=== PATIENT | male | born 1980 | race Hispanic/Latino ===

== ENCOUNTER 2019-11-17 14:33 | Emergency (ER) | payer SELFPAY ==
--- NOTE | 2019-11-17 16:10 | RAD ---
XR Foot Rt 3 View STANDARD History: Pain Comparison: None. Findings: Small plantar calcaneal spur. No acute displaced fracture or malalignment. Lisfranc interva l is maintained. Soft tissues are unremarkable. Impression: No acute osseous abnormality.
[2019-11-17] MEDS ORDERED: Ibuprofen 800 MG TAB ONE (16:17)
== END 2019-11-17 16:57 | disposition home or self-care (01) ==
LOC: ERS 14:33
DX: M72.2 Plantar fascial fibromatosis (principal)

== ENCOUNTER 2019-11-27 11:28 | Emergency (ER) | payer SELFPAY ==
[2019-11-27] MEDS ORDERED: Ketorolac Tromethamine 30 MG/ML VIAL ONE (11:50)
[2019-11-27] MEDS ORDERED: Morphine 2 MG/ML VIAL ONE (11:51)
[2019-11-27] MEDS ORDERED: Diazepam 10 MG/2 ML SYRINGE ONE (11:52)
--- NOTE | 2019-11-27 12:20 | CT ---
CT Stone Protocol: 11/27/2019 12:07 PM HISTORY: Left flank pain for 2 days COMPARISON: None. TECHNIQUE: Multiple contiguous axial images were obtained and a CT of the abdomen and pelvis without IV contrast . Coronal and sagittal reformats were performed. FINDINGS: This examination is limited for the evaluation of solid organs and vascular structures due to the lac k of intravenous contrast. Lower Chest: within normal limits. Abdomen: Liver: within normal limits. Bile Ducts: Normal caliber. Gallbladder: No calcified gallstones. Normal caliber wall. Pancreas: within normal limits. Spleen: within normal limits. Adrenals: within normal limits. Kidneys: within normal limits. Pelvis: Reproductive Organs: No pelvic masses. Ureters: within normal limits. Bladder: within normal limits. Bowel: Normal caliber. Normal appendix. Mesenteric Lymph Nodes: No enlarged mesenteric lymph nodes. Peritoneum: No ascites or free air, no fluid collection. Vessels: Normal caliber aorta Retroperitoneum: within normal limits. Abdominal Wall: within normal limits. Bones: Unremarkable. IMPRESSION: No evidence of acute intraabdominal or pelvic abnormality.
[2019-11-27 13:01] LABS: ALT (SGPT) 144 U/L (8-55); AST (SGOT) 166 U/L (5-34); Albumin 4.3 g/dL (3.5-5.0); Alkaline Phosphatase 184 U/L (40-110); Anion Gap 18 mmol/L (10-20); BUN (Urea Nitrogen) 14 mg/dL (8.9-20.6); Bilirubin, Total 0.8 mg/dL (0.2-1.2); Calc. Creatinine Clearance 0 mL/min (70-130); Carbon Dioxide 20 mmol/L (22-29); Chloride 98 mmol/L (98-107); Estimated GFR-MDRD 67; Globulin 3.3 g/dL (2.4-3.5); Glucose 109 mg/dL (70-105); Protein, Total 7.6 g/dL (6.0-8.3); Sodium 132 mmol/L (136-145)
[2019-11-27 13:01] LABS: #Lymphocytes 1.4 thou/uL (1.20-3.40); #Monocytes 0.4 thou/uL (0.11-0.59); #Neutrophils 2.7 thou/uL (1.40-6.50); %Basophils 0.7 % (0.0-1.0); %Eosinophils 0.2 % (0.0-10.0); %Monocytes 7.8 % (0.0-10.0); %Neutrophils 60.3 % (42.0-75.0); Hemoglobin 13.7 g/dL (14.0-18.0); Mean Corpuscular HGB CONC 33.8 g/dL (32.0-36.0); Mean Corpuscular Hemoglobin 29.3 pg (27.0-31.0); Mean Corpuscular Volume 86.6 fL (78.0-98.0); Platelet Count 146 thou/uL (130-400); RBC Distribution Width 11.4 % (11.5-14.5); Red Blood Cell (RBC) Count 4.68 mill/uL (4.70-6.10); White Blood Cell (WBC) Count 4.4 thou/uL (4.8-10.8)
== END 2019-11-27 13:44 | disposition home or self-care (01) ==
LOC: ERS 11:28
DX: S29.012A Strain of muscle and tendon of back wall of thorax, initial encounter (principal); X58.XXXA Exposure to other specified factors, initial encounter
CPT/HCPCS: 36415; 74176; 80053; 84443; 85025; 93005; 96361; 96374; 96375; J1885; J2270; J3360

== ENCOUNTER 2019-11-28 21:38 | Emergency (ER) | payer SELFPAY ==
[2019-11-28 22:10] LABS: #Lymphocytes 1.7 thou/uL (1.20-3.40); #Monocytes 0.3 thou/uL (0.11-0.59); #Neutrophils 3.7 thou/uL (1.40-6.50); %Basophils 0.7 % (0.0-1.0); %Eosinophils 0.6 % (0.0-10.0); %Lymphocytes 29.5 % (21.0-51.0); %Monocytes 5.5 % (0.0-10.0); %Neutrophils 63.7 % (42.0-75.0); Hemoglobin 14.5 g/dL (14.0-18.0); Mean Corpuscular HGB CONC 34.5 g/dL (32.0-36.0); Mean Corpuscular Hemoglobin 29.9 pg (27.0-31.0); Mean Corpuscular Volume 86.6 fL (78.0-98.0); Mean Platelet Volume 7.2 fL (7.4-10.4); Platelet Count 168 thou/uL (130-400); RBC Distribution Width 11.6 % (11.5-14.5); Red Blood Cell (RBC) Count 4.87 mill/uL (4.70-6.10); White Blood Cell (WBC) Count 5.8 thou/uL (4.8-10.8)
[2019-11-28 22:29] LABS: Bacteria/HPF None Seen HPF (None Seen); Bilirubin Negative (Negative); Blood, Urine Negative (Negative); Calcium Oxalate Crystals Rare HPF (None Seen); Clarity Turbid (Clear); Glucose, Urine (Dipstick) Normal (Negative); Ketone, Urine 20 mg/dL (Negative); Leukocyte Negative Leu/uL (Negative); Mucous/LPF 2+ LPF (<2+); Nitrite Negative (Negative); Protein, Urine (Dipstick) 50 mg/dL (Neg-Trace); RBC/HPF 0-3 HPF (0-3); Renal Epithelial 0-3 HPF (None Seen); Specific Gravity, Urine 1.032 (1.002-1.036); Squamous Epithelial 0-3 HPF (0-3); Urobilinogen 3 mg/dL (Less than 2)
[2019-11-28 22:33] LABS: ALT (SGPT) 158 U/L (8-55); AST (SGOT) 165 U/L (5-34); Alkaline Phosphatase 188 U/L (40-110); Anion Gap 18 mmol/L (10-20); BUN (Urea Nitrogen) 21 mg/dL (8.9-20.6); Bilirubin, Total 0.8 mg/dL (0.2-1.2); CK (CPK) 46 U/L (30-200); Calc. Creatinine Clearance 0 mL/min (70-130); Calcium 9.1 mg/dL (7.8-10.44); Carbon Dioxide 19 mmol/L (22-29); Chloride 101 mmol/L (98-107); Estimated GFR-MDRD 76; Globulin 3.8 g/dL (2.4-3.5); Glucose 93 mg/dL (70-105); Lipase 94 U/L (8-78); Potassium 3.8 mmol/L (3.5-5.1); Protein, Total 7.8 g/dL (6.0-8.3); Sodium 134 mmol/L (136-145)
[2019-11-28] MEDS ORDERED: Ondansetron PF 4 MG/2 ML Vial ONE (22:37)
[2019-11-28] MEDS ORDERED: Morphine 4 MG/ML VIAL ONE (22:37)
[2019-11-28] MEDS ORDERED: Ketorolac Tromethamine 30 MG/ML VIAL ONE (22:37)
--- NOTE | 2019-11-29 07:40 | ULT ---
PRELIMINARY REPORT/[facility]/EMERGENCY AFTER HOURS PROCEDURE: EXAM: US Abdomen Limited, Right Upper Quadrant. CLINICAL HISTORY: ABD pain, pain worse in LUQ, pain radiates to back TECHNIQUE: Real-time ultrasound of the right upper quadrant with image documentation. COMPARISON: None provided. FINDINGS: LIVER: The liver is enlarged measuring 17.7 cm in length and demonstrates increased echogenicity. GALLBLADDER: Punctate echogenic stones and echogenic sludge in the gallbladder lumen. No wall thickening. No estefany cholecystic fluid. COMMON BILE DUCT: No dilation. PANCREAS: Unremarkable as visualized. The distal pancreas is obscured by overlying bowel gas. RIGHT KIDNEY: Unremarkable. No hydronephrosis. IMPRESSION: Cholelithiasis with no evidence of cholecystitis. Mild hepatomegaly with fatty infiltration. ELECTRONICALLY SIGNED BY: Scotty Valdovinos MD Nov 29, 2019 1:16:50 AM CDT This report is intended for review by the ordering physician only, in accordance of law. If you recei ve this report in error, please call [facility] at [phone]. FINAL REPORT EMERGENCY AFTER HOURS RIGHT UPPER QUADRANT ABDOMINAL ULTRASOUND: FINDINGS/IMPRESSION: I agree with the findings and impression given in the preliminary report per [facility] physici an. 1. Cholelithiasis. 2. The liver is likely normal without evidence of fatty infiltration. POS: NADIRA
== END 2019-11-29 01:51 | disposition home or self-care (01) ==
LOC: ERS 21:38
DX: K80.20 Calculus of gallbladder without cholecystitis without obstruction (principal); M54.5 Low back pain
CPT/HCPCS: 36415; 76705; 80053; 81003; 81015; 82550; 83690; 85025; 85652; 86140; 96372; 96374; 96375; J0500; J1885; J2270; J2405

== ENCOUNTER 2020-05-27 04:13 | Inpatient (IN) | payer OTHER, SELFPAY ==
[2020-05-27 04:58] LABS: Bilirubin Negative (Negative); Blood, Urine Negative (Negative); Clarity Clear (Clear); Glucose, Urine (Dipstick) Normal (Negative); Ketone, Urine Negative (Negative); Leukocyte Negative Leu/uL (Negative); Nitrite Negative (Negative); Protein, Urine (Dipstick) Negative (Neg-Trace); Urobilinogen Normal mg/dL (Less than 2)
[2020-05-27 05:01] LABS: #Basophils 0.1 thou/uL (0.0-0.2); #Eosinphils 0.1 thou/uL (0.0-0.7); #Lymphocytes 3.1 thou/uL (1.20-3.40); #Monocytes 0.8 thou/uL (0.11-0.59); #Neutrophils 7.4 thou/uL (1.40-6.50); %Basophils 0.7 % (0.0-1.0); %Eosinophils 1.2 % (0.0-10.0); %Lymphocytes 27.1 % (21.0-51.0); %Neutrophils 64.1 % (42.0-75.0); Hemoglobin 9.6 g/dL (14.0-18.0); Mean Corpuscular HGB CONC 31.4 g/dL (32.0-36.0); Mean Corpuscular Hemoglobin 26.5 pg (27.0-31.0); Mean Corpuscular Volume 84.6 fL (78.0-98.0); Mean Platelet Volume 5.8 fL (7.4-10.4); Platelet Count 351 thou/uL (130-400); RBC Distribution Width 15.5 % (11.5-14.5); Red Blood Cell (RBC) Count 3.62 mill/uL (4.70-6.10); White Blood Cell (WBC) Count 11.5 thou/uL (4.8-10.8)
[2020-05-27 05:19] LABS: ALT (SGPT) 10 U/L (8-55); AST (SGOT) 19 U/L (5-34); Albumin 3.8 g/dL (3.5-5.0); Alkaline Phosphatase 142 U/L (40-110); Anion Gap 15 mmol/L (10-20); BUN (Urea Nitrogen) 14 mg/dL (8.9-20.6); Bilirubin, Total 0.5 mg/dL (0.2-1.2); Calc. Creatinine Clearance 0 mL/min (70-130); Calcium 9.5 mg/dL (7.8-10.44); Carbon Dioxide 24 mmol/L (22-29); Chloride 102 mmol/L (98-107); Globulin 3.5 g/dL (2.4-3.5); Glucose 99 mg/dL (70-105); Lipase 34 U/L (8-78); Potassium 3.8 mmol/L (3.5-5.1); Protein, Total 7.3 g/dL (6.0-8.3); Sodium 137 mmol/L (136-145)
[2020-05-27] MEDS ORDERED: Vancomycin 1.5 GRAM/300 ML BAG 1.5 GM in Premix Bag 1 BAG IVPB SCH ×2 (07:00→12:00)
[2020-05-27 09:43] VITALS: BMI 20.5
[2020-05-27] MEDS: Acetaminophen 325 MG TAB PO PRN (12:16)
[2020-05-27] MEDS ORDERED: Sodium Bicarbonate 2.5 MEQ/5 ML VIAL ONE (14:00)
[2020-05-27] MEDS ORDERED: Acetaminophen/Codeine 30-300mg Tablet PO PRN (14:22)
[2020-05-27] MEDS ORDERED: Iopamidol-370 76% 500 ML 1 ML ONE (14:38)
[2020-05-27] MEDS ORDERED: Magnevist 469MG/ML 20 ML VIAL ONE (15:04)
[2020-05-27] MEDS ORDERED: Dexamethasone 4 MG TAB PO SCH (16:00)
[2020-05-27 17:09] LABS: SARS-CoV-2 PCR by NAA Not Detected (NotDetected)
[2020-05-27] MEDS: Vancomycin 1.5 GRAM/300 ML BAG 1.5 GM in Premix Bag 1 BAG IVPB SCH (19:35)
[2020-05-27 20:23] LABS: Prothrombin Time 13.8 sec (12.0-14.7)
[2020-05-27 20:24] LABS: PTT 54.6 sec (22.9-36.1)
[2020-05-27] MEDS ORDERED: Thrombin 5000 UNITS/5 ML VIAL ONE (20:47)
[2020-05-27] MEDS ORDERED: Bupivacaine PF 0.5% 30 ML VIAL ONE (20:47)
[2020-05-27] MEDS ORDERED: Lidocaine 2% w/Epinephrine 1:200K 20 ML VIAL ONE (20:47)
[2020-05-27] MEDS ORDERED: Sodium Chloride 0.9% 0 ML ONE (20:47)
[2020-05-27] MEDS ORDERED: Sodium Chloride 0.9% 20 ML ONE (20:48)
[2020-05-27] MEDS ORDERED: Midazolam HCl 2 mg/2 ml Vial ONE (21:04)
[2020-05-27] MEDS ORDERED: Fentanyl 100 MCG/2 ML VIAL ONE (21:04)
[2020-05-27] MEDS ORDERED: Ondansetron PF 4 MG/2 ML Vial ONE (21:05)
[2020-05-27] MEDS ORDERED: Lidocaine 1% PF 5 ML VIAL ONE (21:05)
[2020-05-27] MEDS ORDERED: PHENYLEPHRINE-NS 100 MCG/ML 10 ML SYRINGE ONE (21:05)
[2020-05-27] MEDS ORDERED: Rocuronium Bromide 10 MG/ML (10ML VIAL) ONE (21:05)
[2020-05-27] MEDS ORDERED: Dexamethasone 20 MG/5 ML VIAL ONE (21:05)
[2020-05-27] MEDS ORDERED: PROPOFOL 200 MG/20 ML VIAL ONE (21:05)
[2020-05-27] MEDS ORDERED: Albumin 5% 500 ML ONE (22:59)
[2020-05-27] MEDS ORDERED: PACU-Morphine 4MG/ML VIAL SLOW IVP PRN (23:51)
[2020-05-27] MEDS ORDERED: Promethazine HCl 25 MG/ML VIAL SLOW IVP PRN (23:51)
[2020-05-27] MEDS ORDERED: Meperidine HCl/PF 25 MG/ML VIAL SLOW IVP PRN (23:51)
[2020-05-27] MEDS ORDERED: Promethazine HCl 25 MG/ML VIAL IM PRN (23:51)
[2020-05-27] MEDS ORDERED: HYDROmorphone 2 MG/ML VIAL SLOW IVP PRN (23:51)
[2020-05-27] MEDS ORDERED: Morphine Sulfate 2 MG/ML SYRINGE SLOW IVP PRN (23:51)
[2020-05-27] MEDS ORDERED: Ondansetron HCl/PF 4 MG/2 ML Vial IVP PRN (23:51)
[2020-05-28] MEDS ORDERED: SUGAMMADEX SODIUM 200 MG/2 ML VIAL ONE (00:15)
[2020-05-28] MEDS ORDERED: diphenhydrAMINE 25 MG CAP PO PRN (00:23)
[2020-05-28] MEDS ORDERED: Mag-Al 1200 mg/1200 mg/30 ML UDCUP PO PRN (00:23)
[2020-05-28] MEDS ORDERED: Scopolamine 1.5 mg/72 hour Patch TD PRN (00:23)
[2020-05-28] MEDS ORDERED: Milk Of Magnesia 30 ML UDCUP PO PRN (00:23)
[2020-05-28] MEDS ORDERED: Promethazine HCl 25 MG/ML VIAL IM PRN (00:23)
[2020-05-28] MEDS ORDERED: Promethazine 25 MG TAB PO PRN (00:23)
[2020-05-28] MEDS ORDERED: Fentanyl 100 MCG/2 ML VIAL ONE (01:03)
[2020-05-28] MEDS: Sodium Chloride 0.9% 1,000 ML IV SCH ×2 (02:06→11:40)
[2020-05-28] MEDS: Morphine 2 MG/ML VIAL SLOW IVP PRN ×2 (02:18→07:27)
[2020-05-28 05:35] LABS: #Lymphocytes 0.9 thou/uL (1.20-3.40); #Monocytes 0.1 thou/uL (0.11-0.59); #Neutrophils 7.1 thou/uL (1.40-6.50); %Eosinophils 0.1 % (0.0-10.0); %Lymphocytes 11.4 % (21.0-51.0); %Neutrophils 87.4 % (42.0-75.0); Hemoglobin 8.4 g/dL (14.0-18.0); Mean Corpuscular HGB CONC 33.2 g/dL (32.0-36.0); Mean Corpuscular Hemoglobin 28.5 pg (27.0-31.0); Mean Platelet Volume 5.5 fL (7.4-10.4); Platelet Count 285 thou/uL (130-400); RBC Distribution Width 15.5 % (11.5-14.5); Red Blood Cell (RBC) Count 2.95 mill/uL (4.70-6.10); White Blood Cell (WBC) Count 8.2 thou/uL (4.8-10.8)
[2020-05-28 06:01] LABS: Anion Gap 12 mmol/L (10-20); BUN (Urea Nitrogen) 14 mg/dL (8.9-20.6); Calc. Creatinine Clearance 91 mL/min (70-130); Calcium 9.3 mg/dL (7.8-10.44); Carbon Dioxide 23 mmol/L (22-29); Chloride 107 mmol/L (98-107); Glucose 159 mg/dL (70-105); Sodium 138 mmol/L (136-145)
[2020-05-28] MEDS: Vancomycin 1.5 GRAM/300 ML BAG 1.5 GM in Premix Bag 1 BAG IVPB SCH ×2 (09:43→21:09)
[2020-05-28] MEDS: traMADol HCl 50 MG TAB PO PRN ×2 (09:46→21:10)
[2020-05-28] MEDS ORDERED: Morphine 2 MG/ML VIAL SLOW IVP PRN (15:36)
[2020-05-28] MEDS: cefTRIAXone\\ROCEPHIN 2 GM in Sodium Chloride 0.9% 100 ML IVPB SCH (16:43)
[2020-05-28 19:34] LABS: Syphilis Antibody Nonreactive (Nonreactive); Syphilis Antibody Index 0.04 S/CO (<1.00 Non-Reactive)
[2020-05-28] MEDS: Vancomycin 1 GM in Premix Bag 1 BAG IVPB SCH (22:17)
[2020-05-29] MEDS: cefTRIAXone\\ROCEPHIN 2 GM in Sodium Chloride 0.9% 100 ML IVPB SCH ×2 (04:34→15:47)
[2020-05-29] MEDS: traMADol HCl 50 MG TAB PO PRN ×4 (04:37→20:33)
[2020-05-29 06:21] LABS: #Lymphocytes 1.9 thou/uL (1.20-3.40); #Monocytes 0.5 thou/uL (0.11-0.59); #Neutrophils 7.6 thou/uL (1.40-6.50); %Basophils 0.1 % (0.0-1.0); %Eosinophils 0.1 % (0.0-10.0); %Lymphocytes 18.8 % (21.0-51.0); %Monocytes 5.3 % (0.0-10.0); %Neutrophils 75.6 % (42.0-75.0); Hemoglobin 8.5 g/dL (14.0-18.0); Mean Corpuscular HGB CONC 32.2 g/dL (32.0-36.0); Mean Corpuscular Hemoglobin 27.5 pg (27.0-31.0); Mean Corpuscular Volume 85.4 fL (78.0-98.0); Mean Platelet Volume 5.6 fL (7.4-10.4); Platelet Count 355 thou/uL (130-400); RBC Distribution Width 15.6 % (11.5-14.5); White Blood Cell (WBC) Count 10.1 thou/uL (4.8-10.8)
[2020-05-29 06:37] LABS: Anion Gap 12 mmol/L (10-20); BUN (Urea Nitrogen) 13 mg/dL (8.9-20.6); Calc. Creatinine Clearance 111 mL/min (70-130); Calcium 9.2 mg/dL (7.8-10.44); Carbon Dioxide 24 mmol/L (22-29); Chloride 107 mmol/L (98-107); Glucose 91 mg/dL (70-105); Potassium 3.6 mmol/L (3.5-5.1); Sodium 139 mmol/L (136-145)
[2020-05-29 07:00] LABS: HBCM Index 0.04 S/CO (0-0.79); HBSAg Index 0.26 S/CO (0-0.99); Hep A IgM AB Non-Reactive (NonReactive); Hep B Surf Ag Non-Reactive S/CO (NonReactive); Hep C IgG Ab Non-Reactive (NonReactive); Hep C Index 0.47 S/CO (0-0.79); Hepatitis B Core IgM Abs Non-Reactive (NonReactive)
[2020-05-29] MEDS: Vancomycin 1 GM in Premix Bag 1 BAG IVPB SCH ×2 (09:51→21:08)
[2020-05-30] MEDS: cefTRIAXone\\ROCEPHIN 2 GM in Sodium Chloride 0.9% 100 ML IVPB SCH ×2 (04:21→15:57)
[2020-05-30 05:42] LABS: #Eosinphils 0.1 thou/uL (0.0-0.7); #Lymphocytes 1.7 thou/uL (1.20-3.40); #Monocytes 0.6 thou/uL (0.11-0.59); #Neutrophils 4.7 thou/uL (1.40-6.50); %Basophils 0.3 % (0.0-1.0); %Lymphocytes 23.6 % (21.0-51.0); %Monocytes 8.8 % (0.0-10.0); %Neutrophils 66.2 % (42.0-75.0); Hemoglobin 8.6 g/dL (14.0-18.0); Mean Corpuscular HGB CONC 32.3 g/dL (32.0-36.0); Mean Corpuscular Hemoglobin 27.6 pg (27.0-31.0); Mean Corpuscular Volume 85.2 fL (78.0-98.0); Mean Platelet Volume 5.3 fL (7.4-10.4); Platelet Count 410 thou/uL (130-400); RBC Distribution Width 15.5 % (11.5-14.5); Red Blood Cell (RBC) Count 3.13 mill/uL (4.70-6.10); White Blood Cell (WBC) Count 7.1 thou/uL (4.8-10.8)
[2020-05-30 05:58] LABS: Anion Gap 15 mmol/L (10-20); BUN (Urea Nitrogen) 10 mg/dL (8.9-20.6); Calc. Creatinine Clearance 114 mL/min (70-130); Calcium 8.9 mg/dL (7.8-10.44); Carbon Dioxide 21 mmol/L (22-29); Chloride 102 mmol/L (98-107); Glucose 83 mg/dL (70-105); Potassium 3.7 mmol/L (3.5-5.1); Sodium 134 mmol/L (136-145)
[2020-05-30 09:39] LABS: Vancomycin, Trough 16.2 ug/mL
[2020-05-30] MEDS: Vancomycin 1 GM in Premix Bag 1 BAG IVPB SCH ×2 (10:58→21:11)
[2020-05-30] MEDS: traMADol HCl 50 MG TAB PO PRN ×2 (13:06→21:06)
[2020-05-31] MEDS: cefTRIAXone\\ROCEPHIN 2 GM in Sodium Chloride 0.9% 100 ML IVPB SCH ×2 (03:36→16:50)
[2020-05-31] MEDS: Vancomycin 1 GM in Premix Bag 1 BAG IVPB SCH ×2 (09:08→21:35)
[2020-05-31] MEDS: traMADol HCl 50 MG TAB PO PRN (21:44)
[2020-06-01] MEDS: cefTRIAXone\\ROCEPHIN 2 GM in Sodium Chloride 0.9% 100 ML IVPB SCH ×2 (05:30→16:30)
[2020-06-01] MEDS: Acetaminophen 325 MG TAB PO PRN ×3 (05:39→22:22)
[2020-06-01] MEDS: Vancomycin 1 GM in Premix Bag 1 BAG IVPB SCH ×2 (08:38→22:15)
[2020-06-02 03:13] LABS: QuantiFERON-TB Gold Plus Negative (Negative)
[2020-06-02] MEDS: cefTRIAXone\\ROCEPHIN 2 GM in Sodium Chloride 0.9% 100 ML IVPB SCH ×2 (04:40→15:38)
[2020-06-02] MEDS: Acetaminophen 325 MG TAB PO PRN (04:41)
[2020-06-02] MEDS: Vancomycin 1 GM in Premix Bag 1 BAG IVPB SCH (09:39)
[2020-06-02] MEDS ORDERED: Morphine 2 MG/ML VIAL SLOW IVP PRN (09:55)
[2020-06-02 13:48] LABS: Vancomycin, Trough 27.5 ug/mL
[2020-06-02] MEDS: traMADol HCl 50 MG TAB PO PRN (20:27)
[2020-06-02 21:33] LABS: Vancomycin, Trough 11.2 ug/mL
[2020-06-02] MEDS: VANCOMYCIN 1.25 GM/250 ML BAG 1.25 GM in Premix Bag 1 BAG IVPB SCH (22:20)
[2020-06-03] MEDS: cefTRIAXone\\ROCEPHIN 2 GM in Sodium Chloride 0.9% 100 ML IVPB SCH ×2 (04:35→14:47)
[2020-06-03 05:56] LABS: #Eosinphils 0.5 thou/uL (0.0-0.7); #Lymphocytes 1.5 thou/uL (1.20-3.40); #Monocytes 0.6 thou/uL (0.11-0.59); #Neutrophils 6.7 thou/uL (1.40-6.50); %Basophils 0.1 % (0.0-1.0); %Eosinophils 5.5 % (0.0-10.0); %Lymphocytes 15.9 % (21.0-51.0); %Monocytes 6.5 % (0.0-10.0); Hemoglobin 8.9 g/dL (14.0-18.0); Mean Corpuscular HGB CONC 32.9 g/dL (32.0-36.0); Mean Corpuscular Hemoglobin 28.1 pg (27.0-31.0); Mean Corpuscular Volume 85.3 fL (78.0-98.0); Mean Platelet Volume 5.1 fL (7.4-10.4); Platelet Count 565 thou/uL (130-400); Red Blood Cell (RBC) Count 3.17 mill/uL (4.70-6.10); White Blood Cell (WBC) Count 9.3 thou/uL (4.8-10.8)
[2020-06-03 06:01] LABS: PTT 37.1 sec (22.9-36.1); Prothrombin Time 13.2 sec (12.0-14.7)
[2020-06-03 06:18] LABS: Anion Gap 17 mmol/L (10-20); BUN (Urea Nitrogen) 17 mg/dL (8.9-20.6); Calc. Creatinine Clearance 113 mL/min (70-130); Calcium 9.4 mg/dL (7.8-10.44); Carbon Dioxide 22 mmol/L (22-29); Chloride 102 mmol/L (98-107); Glucose 87 mg/dL (70-105); Potassium 3.8 mmol/L (3.5-5.1); Sodium 137 mmol/L (136-145)
[2020-06-03] MEDS: VANCOMYCIN 1.25 GM/250 ML BAG 1.25 GM in Premix Bag 1 BAG IVPB SCH ×2 (09:44→21:23)
[2020-06-03] MEDS ORDERED: Sodium Bicarbonate 2.5 MEQ/5 ML VIAL ONE (10:26)
[2020-06-03] MEDS: traMADol HCl 50 MG TAB PO PRN ×2 (12:14→23:28)
[2020-06-04] MEDS: cefTRIAXone\\ROCEPHIN 2 GM in Sodium Chloride 0.9% 100 ML IVPB SCH ×2 (04:39→16:51)
[2020-06-04 05:21] LABS: PTT 42.9 sec (22.9-36.1); Prothrombin Time 13.2 sec (12.0-14.7)
[2020-06-04] MEDS: traMADol HCl 50 MG TAB PO PRN ×2 (09:30→21:36)
[2020-06-04] MEDS: VANCOMYCIN 1.25 GM/250 ML BAG 1.25 GM in Premix Bag 1 BAG IVPB SCH (09:30)
[2020-06-04 10:17] LABS: Vancomycin, Trough 14.4 ug/mL
[2020-06-04] MEDS: Vancomycin 1.5 GRAM/300 ML BAG 1.5 GM in Premix Bag 1 BAG IVPB SCH (21:38)
[2020-06-05] MEDS: traMADol HCl 50 MG TAB PO PRN ×3 (04:43→20:15)
[2020-06-05] MEDS: cefTRIAXone\\ROCEPHIN 2 GM in Sodium Chloride 0.9% 100 ML IVPB SCH (04:43)
[2020-06-05 05:23] LABS: PTT 42.9 sec (22.9-36.1); Prothrombin Time 13.4 sec (12.0-14.7)
[2020-06-05] MEDS: Vancomycin 1.5 GRAM/300 ML BAG 1.5 GM in Premix Bag 1 BAG IVPB SCH (10:26)
[2020-06-05] MEDS: Acetaminophen 325 MG TAB PO PRN ×2 (10:52→20:15)
[2020-06-05] MEDS ORDERED: Famotidine/PF 20 mg/2ml Vial SLOW IVP SCH (20:00)
[2020-06-05] MEDS ORDERED: diphenhydrAMINE 50 MG/ML VIAL IVP SCH ×2 (20:00→21:00)
[2020-06-05] MEDS ORDERED: Dexamethasone 10 MG/ML VIAL SLOW IVP SCH (21:15)
[2020-06-06] MEDS: diphenhydrAMINE 50 MG/ML VIAL IVP SCH ×3 (04:24→20:52)
[2020-06-06] MEDS: traMADol HCl 50 MG TAB PO PRN (06:22)
[2020-06-06] MEDS: Dexamethasone 10 MG/ML VIAL SLOW IVP SCH (08:50)
[2020-06-06 09:31] LABS: Vancomycin, Trough 7.1 ug/mL
[2020-06-06] MEDS: Acetaminophen 325 MG TAB PO PRN (21:01)
[2020-06-07] MEDS: Acetaminophen 325 MG TAB PO PRN ×2 (04:57→21:01)
[2020-06-07] MEDS: diphenhydrAMINE 50 MG/ML VIAL IVP SCH ×3 (04:57→21:00)
[2020-06-07] MEDS: Dexamethasone 10 MG/ML VIAL SLOW IVP SCH (08:23)
[2020-06-07] MEDS: tiZANidine HCl 4 MG TAB PO PRN (11:21)
[2020-06-07] MEDS ORDERED: Dexamethasone 10 MG/ML VIAL SLOW IVP PRN (20:16)
[2020-06-08] MEDS: tiZANidine HCl 4 MG TAB PO PRN (05:24)
[2020-06-08] MEDS: diphenhydrAMINE 50 MG/ML VIAL IVP SCH ×3 (05:24→21:24)
[2020-06-08] MEDS: Acetaminophen 325 MG TAB PO PRN (05:24)
[2020-06-08] MEDS: DAPTOmycin 500 MG in Sodium Chloride 0.9% 10 ML IVPB SCH (15:00)
[2020-06-08] MEDS ORDERED: Acetaminophen/Codeine 30-300mg Tablet PO PRN (15:29)
[2020-06-08] MEDS ORDERED: traMADol HCl 50 MG TAB PO PRN (15:29)
[2020-06-08] MEDS ORDERED: Heparin 1,000 UNITS/ML VIAL ONE (15:34)
[2020-06-09] MEDS: Acetaminophen 325 MG TAB PO PRN (05:16)
[2020-06-09] MEDS: diphenhydrAMINE 50 MG/ML VIAL IVP SCH ×3 (05:24→20:39)
[2020-06-09 12:39] LABS: Brucella IgM Ab Negative (Negative)
[2020-06-09] MEDS: DAPTOmycin 500 MG in Sodium Chloride 0.9% 10 ML IVPB SCH (15:16)
[2020-06-10] MEDS: diphenhydrAMINE 50 MG/ML VIAL IVP SCH ×2 (03:28→13:01)
[2020-06-10] MEDS ORDERED: Rivaroxaban 10 MG TAB ONE (14:57)
[2020-06-10] MEDS: DAPTOmycin 500 MG in Sodium Chloride 0.9% 10 ML IVPB SCH (15:32)
[2020-06-10 17:42] VITALS: BP 109/69; TEMP 98.7
== END 2020-06-10 17:33 | disposition home or self-care (01) | DRG 28 ==
LOC: SUATTDRO 04:13 → ERS 04:13 → T4-B 07:13 → OBSVTOIN 07:13
PROVIDERS: ADMIT Student in an Organized Health Care Education/Training Program; ATTEND Hospitalist
PROC: 01NB0ZZ Release Lumbar Nerve, Open Approach (ICD-10-PCS; principal; 2020-05-27)
PROC: 009U0ZX Drainage of Spinal Canal, Open Approach, Diagnostic (ICD-10-PCS; 2020-05-27)
PROC: 01N80ZZ Release Thoracic Nerve, Open Approach (ICD-10-PCS; 2020-05-27)
PROC: 01NR0ZZ Release Sacral Nerve, Open Approach (ICD-10-PCS; 2020-05-27)
PROC: 0K9 Muscles, Drainage (ICD-10-PCS; 2020-05-27)
PROC: 02HV33Z Insertion of Infusion Device into Superior Vena Cava, Percutaneous Approach (ICD-10-PCS; 2020-06-03)
PROC: B548ZZA Ultrasonography of Superior Vena Cava, Guidance (ICD-10-PCS; 2020-06-03)
DX: G06.1 Intraspinal abscess and granuloma (principal); K68.12 Psoas muscle abscess; M46.26 Osteomyelitis of vertebra, lumbar region; G83.4 Cauda equina syndrome; M46.46 Discitis, unspecified, lumbar region; Z20.822 Contact with and (suspected) exposure to COVID-19; M46.44 Discitis, unspecified, thoracic region; M46.47 Discitis, unspecified, lumbosacral region; T36.1X5A Adverse effect of cephalosporins and other beta-lactam antibiotics, initial encounter; L27.0 Generalized skin eruption due to drugs and medicaments taken internally; Z83.3 Family history of diabetes mellitus; Z79.899 Other long term (current) drug therapy
CPT/HCPCS: 36415; 36569; 72131; 72158; 74177; 76000; 77012; 80048; 80053; 80074; 80202; 81003; 83690; 85025; 85610; 85652; 85730; 86140; 86480; 86622; 86780; 87040; 87070; 87116; 87205; 87206; 87635; 96365; 96366; A9579; C1751; G0378; J0696; J0744; J0878; J1100; J1200; J1644; J2250; J2270; J2405; J2704; J3010; J3370; J3490; J8540; P9045; Q0163; Q9967; S0020; S0028; U0003; U0005

== ENCOUNTER 2020-07-20 09:16 | Outpatient (CLI) | payer OTHER, SELFPAY ==
[~2020-07-20 09:16] MED LIST: Magnevist 469MG/ML 20 ML VIAL ONE
== END 2020-07-20 09:17 | disposition home or self-care (01) ==
LOC: TBSIIMAG 09:16
PROVIDERS: ATTEND Internal Medicine Infectious Disease
DX: M46.47 Discitis, unspecified, lumbosacral region (principal); G06.1 Intraspinal abscess and granuloma; M46.46 Discitis, unspecified, lumbar region; K68.12 Psoas muscle abscess
CPT/HCPCS: 72158; A9579

== ENCOUNTER 2020-07-20 16:39 | Inpatient (IN) | payer SELFPAY ==
[2020-07-20 17:32] LABS: #Eosinphils 0.1 thou/uL (0.0-0.7); #Lymphocytes 1.6 thou/uL (1.20-3.40); #Monocytes 0.6 thou/uL (0.11-0.59); %Basophils 0.1 % (0.0-1.0); %Eosinophils 0.7 % (0.0-10.0); %Lymphocytes 19.1 % (21.0-51.0); %Monocytes 7.3 % (0.0-10.0); %Neutrophils 72.8 % (42.0-75.0); Hemoglobin 9.9 g/dL (14.0-18.0); Mean Corpuscular HGB CONC 33.7 g/dL (32.0-36.0); Mean Corpuscular Hemoglobin 29.1 pg (27.0-31.0); Mean Corpuscular Volume 86.3 fL (78.0-98.0); Mean Platelet Volume 5.2 fL (7.4-10.4); Platelet Count 375 thou/uL (130-400); RBC Distribution Width 12.3 % (11.5-14.5); Red Blood Cell (RBC) Count 3.39 mill/uL (4.70-6.10); White Blood Cell (WBC) Count 8.3 thou/uL (4.8-10.8)
[2020-07-20] MEDS ORDERED: Cefepime 2 GM VIAL ONE (17:36)
[2020-07-20] MEDS ORDERED: Vancomycin 1.5 GRAM/300 ML BAG 1.5 GM in Premix Bag 1 BAG IVPB SCH (17:45)
[2020-07-20 17:54] LABS: ALT (SGPT) 9 U/L (8-55); AST (SGOT) 15 U/L (5-34); Alkaline Phosphatase 84 U/L (40-110); Anion Gap 14 mmol/L (10-20); BUN (Urea Nitrogen) 20 mg/dL (8.9-20.6); Bilirubin, Total 0.2 mg/dL (0.2-1.2); Calc. Creatinine Clearance 0 mL/min (70-130); Calcium 9.2 mg/dL (7.8-10.44); Carbon Dioxide 22 mmol/L (22-29); Chloride 106 mmol/L (98-107); Globulin 2.9 g/dL (2.4-3.5); Glucose 99 mg/dL (70-105); Potassium 3.9 mmol/L (3.5-5.1); Protein, Total 6.9 g/dL (6.0-8.3); Sodium 138 mmol/L (136-145)
[2020-07-20] MEDS ORDERED: HYDROcodone/Acetaminophen 5/325 mg Tablet PO PRN (20:03)
[2020-07-20] MEDS ORDERED: Ondansetron PF 4 MG/2 ML Vial IVP PRN (20:03)
[2020-07-20] MEDS ORDERED: Ondansetron ODT 4 MG TAB PO PRN (20:03)
[2020-07-20 21:24] VITALS: BMI 28.7
[2020-07-20] MEDS ORDERED: Piperacillin/Tazobactam 4.5 GM VIAL ONE (21:34)
[2020-07-20] MEDS: Acetaminophen 325 MG TAB PO PRN (22:01)
[2020-07-20] MEDS: Piperacillin/Tazobactam 4.5 GM in Sodium Chloride 0.9% 100 ML IVPB SCH (22:01)
[2020-07-20 23:14] LABS: SARS-CoV-2 NAA Rapid Test Not Detected (NotDetected)
[2020-07-21] MEDS ORDERED: Vancomycin 1.5 GRAM/300 ML BAG 1.5 GM in Premix Bag 1 BAG IVPB SCH (04:00)
[2020-07-21] MEDS: Piperacillin/Tazobactam 4.5 GM in Sodium Chloride 0.9% 100 ML IVPB SCH (06:25)
[2020-07-21 06:45] LABS: #Basophils 0.1 thou/uL (0.0-0.2); #Eosinphils 0.2 thou/uL (0.0-0.7); #Lymphocytes 0.7 thou/uL (1.20-3.40); #Monocytes 0.4 thou/uL (0.11-0.59); #Neutrophils 12.4 thou/uL (1.40-6.50); %Basophils 0.4 % (0.0-1.0); %Eosinophils 1.7 % (0.0-10.0); %Lymphocytes 5.3 % (21.0-51.0); %Monocytes 3.2 % (0.0-10.0); %Neutrophils 89.5 % (42.0-75.0); Hemoglobin 10.5 g/dL (14.0-18.0); Mean Corpuscular Hemoglobin 29.4 pg (27.0-31.0); Mean Corpuscular Volume 86.4 fL (78.0-98.0); Mean Platelet Volume 5.5 fL (7.4-10.4); Platelet Count 333 thou/uL (130-400); RBC Distribution Width 12.4 % (11.5-14.5); Red Blood Cell (RBC) Count 3.58 mill/uL (4.70-6.10); White Blood Cell (WBC) Count 13.8 thou/uL (4.8-10.8)
[2020-07-21 07:02] LABS: Anion Gap 12 mmol/L (10-20); BUN (Urea Nitrogen) 21 mg/dL (8.9-20.6); Calc. Creatinine Clearance 95 mL/min (70-130); Calcium 9.1 mg/dL (7.8-10.44); Carbon Dioxide 22 mmol/L (22-29); Chloride 107 mmol/L (98-107); Glucose 85 mg/dL (70-105); Sodium 137 mmol/L (136-145)
[2020-07-21] MEDS: Acetaminophen 325 MG TAB PO PRN ×2 (07:50→23:31)
[2020-07-21] MEDS ORDERED: Enoxaparin Sodium 40 MG/0.4 ML SYRINGE SC SCH (09:00)
[2020-07-21 09:08] LABS: INR-International Normal Ratio 1.1; PTT 43.7 sec (22.9-36.1); Prothrombin Time 14.1 sec (12.0-14.7)
[2020-07-21] MEDS ORDERED: Midazolam HCl 2 mg/2 ml Vial ONE (12:29)
[2020-07-21] MEDS ORDERED: Sodium Bicarbonate 2.5 MEQ/5 ML VIAL ONE (12:29)
[2020-07-21] MEDS ORDERED: Fentanyl 100 MCG/2 ML VIAL ONE (12:29)
[2020-07-21] MEDS: DAPTOmycin 500 MG in Sodium Chloride 0.9% 100 ML IVPB SCH (21:10)
[2020-07-21] MEDS: Sodium Chloride 0.9% 1,000 ML IV SCH (21:10)
[2020-07-21] MEDS: Piperacillin/Tazobactam 3.375 GM in Sodium Chloride 0.9% 100 ML IVPB SCH (23:30)
[2020-07-22] MEDS: Sodium Chloride 0.9% 1,000 ML IV SCH (05:11)
[2020-07-22] MEDS: Piperacillin/Tazobactam 3.375 GM in Sodium Chloride 0.9% 100 ML IVPB SCH ×4 (05:12→23:54)
[2020-07-22 05:36] LABS: Hemoglobin 9.1 g/dL (14.0-18.0); Mean Corpuscular HGB CONC 33.8 g/dL (32.0-36.0); Mean Corpuscular Hemoglobin 29.4 pg (27.0-31.0); Mean Corpuscular Volume 86.7 fL (78.0-98.0); Mean Platelet Volume 5.4 fL (7.4-10.4); Platelet Count 305 thou/uL (130-400); RBC Distribution Width 12.2 % (11.5-14.5)
[2020-07-22 05:57] LABS: Anion Gap 12 mmol/L (10-20); BUN (Urea Nitrogen) 22 mg/dL (8.9-20.6); Calc. Creatinine Clearance 116 mL/min (70-130); Calcium 8.8 mg/dL (7.8-10.44); Carbon Dioxide 22 mmol/L (22-29); Chloride 109 mmol/L (98-107); Glucose 84 mg/dL (70-105); Potassium 3.6 mmol/L (3.5-5.1); Sodium 139 mmol/L (136-145)
[2020-07-22] MEDS: DAPTOmycin 500 MG in Sodium Chloride 0.9% 100 ML IVPB SCH (20:54)
[2020-07-23] MEDS: Piperacillin/Tazobactam 3.375 GM in Sodium Chloride 0.9% 100 ML IVPB SCH ×3 (06:22→17:06)
[2020-07-23 16:15] VITALS: BP 102/65; TEMP 98.1
== END 2020-07-23 17:40 | disposition home or self-care (01) | DRG 871 ==
LOC: ERS 16:39 → OBSVTOIN 19:37 → SURG A 19:37
PROVIDERS: ADMIT Student in an Organized Health Care Education/Training Program; ATTEND Internal Medicine
PROC: 0K9P3ZZ Drainage of Left Hip Muscle, Percutaneous Approach (ICD-10-PCS; principal; 2020-07-21)
DX: A41.9 Sepsis, unspecified organism (principal); G06.2 Extradural and subdural abscess, unspecified; K68.12 Psoas muscle abscess; M60.08 Infective myositis, other site; N17.9 Acute kidney failure, unspecified; M46.26 Osteomyelitis of vertebra, lumbar region; M46.27 Osteomyelitis of vertebra, lumbosacral region; M46.46 Discitis, unspecified, lumbar region; M46.47 Discitis, unspecified, lumbosacral region; G89.29 Other chronic pain; Z20.822 Contact with and (suspected) exposure to COVID-19; D64.9 Anemia, unspecified; Z98.890 Other specified postprocedural states
CPT/HCPCS: 36415; 49060; 77002; 80048; 80053; 83605; 85025; 85027; 85610; 85730; 86140; 86635; 87040; 87070; 87102; 87116; 87205; 87206; 88112; 88305; 88312; 96365; 96366; 96367; J0692; J0878; J2250; J2543; J3010; J3370; J3490; U0002; U0005